=== PATIENT | female | born 1985 | race Caucasian/White ===

== ENCOUNTER 2016-03-23 18:09 | Emergency (ER) | payer SELFPAY ==
[2016-03-23] MEDS ORDERED: IOPAMIDOL 300 (61%) 150 ML VIAL IV ONE (18:10)
[2016-03-23] MEDS ORDERED: ACETAMINOPHEN 325 MG TABLET ONE (18:45)
[2016-03-23 19:00] LABS: ABSOLUTE NEUTROPHIL COUNT 7.2 K/mm3 (1.8-7.7); BASO % 0.4 % (0.2-1.0); EOS # 0.4 (0.0-0.5); EOS % 3.2 % (0.9-2.9); HEMATOCRIT 43.3 % (37.0-47.0); HEMOGLOBIN 14.1 gm/l (12.0-16.0); IMM NEUT% 0.3 % (0-1); LYMPH # 2.6 (1.0-4.8); LYMPH % 23.8 % (15-45); MEAN CELL VOLUME 88.4 fl (81.0-99.0); MEAN CORPUSCULAR HEMOGLOBIN 28.8 pg (27.0-31.0); MEAN CORPUSCULAR HGB CONC 32.6 g/dl (33.0-37.0); MEAN PLATELET VOLUME 9.1 fl (7.4-10.4); MONO # 0.7 (0.0-0.8); MONO % 6.5 % (4-12); NEUT % 65.8 % (43-75); PLATELET COUNT 384 K/mm3 (130-400); RED CELL DISTRIBUTION WIDTH 12.1 % (11.5-14.5)
[2016-03-23 19:09] LABS: ALB/GLOB RATIO 1.4 (>1.0); ALBUMIN 4.1 gm/dL (3.5-5.7); CALCIUM 8.8 mg/dL (8.6-10.3)
[2016-03-23 19:27] LABS: URINE BILIRUBIN NEGATIVE (NEGATIVE); URINE BLOOD TRACE (NEGATIVE); URINE GLUCOSE (UA) NEGATIVE (NEGATIVE); URINE LEUKOCYTE ESTERASE NEGATIVE (NEGATIVE); URINE NITRITE NEGATIVE (NEGATIVE); URINE PROTEIN NEGATIVE (NEGATIVE); URINE UROBILINOGEN NORMAL (0-1 mg/dl)
[2016-03-23 19:50] LABS: URINE COLOR YELLOW
[2016-03-23 19:51] LABS: URINE APPEARANCE CLEAR
[2016-03-23 19:52] LABS: URINE RBC 0-2 /hpf; URINE WBC 0-2 /hpf
[2016-03-23 19:53] LABS: URINE BACTERIA RARE
[2016-03-23 20:11] LABS: HCG,QUALITATIVE URINE NEGATIVE
--- NOTE | 2016-03-23 20:39 | CT ---
Exam Type: ABD/PELVIS W/ CON Date and Time: 03/23/2016 6:32 PM Clinical information: Lower quadrant abdominal pain with cramping and vaginal bleeding. Comparison: None Procedure: Imaging device: [employer] Aquilion [address] scanner 1 mm axial images were obtained through the abdomen and pelvis. Stacked reconstructed 3, 4 and 5 mm images were photographed in the axial coronal and sagittal planes. No oral contrast was utilized for this examination. 125 ml of Isovue-300 was injected intravenously. Exam: with intravenous contrast. FINDINGS: Lung bases:The visualized lung bases appear to be appropriate with no mass, effusion or consolidation visualized. Liver: the liver is homogeneous with no discrete abnormality visualized. No definite findings of biliary dilatation are observed. Spleen: The spleen is homogeneous and does not appear to be enlarged. Gallbladder: Normal without enlargement or evidence of adjacent inflammatory changes. Pancreas: Normal without enlargement or evidence of adjacent inflammatory changes. Adrenal glands: Normal without enlargement or evidence of adjacent inflammatory changes. Abdominal aorta: The aorta is of normal caliber and appears to be without significant atherosclerotic disease. Kidneys: The kidneys appear to be symmetric in size with no perinephric inflammatory changes are identified. No current findings of hydronephrosis are seen. Bowel structures: The visualized bowel is of normal caliber without evidence of dilatation or obstruction. No free fluid or mesenteric inflammatory changes are identified. Appendix: The appendix is well-visualized and appears to be of normal caliber. No periappendiceal inflammatory changes or CT findings of appendicitis are currently observed. The appendix is best visualized in the coronal plane. Bladder: The bladder is of normal contour. No wall thickening or significant distention is observed. Hernia: No abdominal wall or inguinal hernia is visualized on this examination. Adenopathy: No significant enlarged adenopathy is visualized. Osseous structures: No discrete osseous abnormalities are identified. Pelvic structures: No discrete pelvic abnormalities are visualized in this examination. IMPRESSION: 1. A negative CT scan of the abdomen and pelvis.
== END 2016-03-23 18:10 | disposition home or self-care (01) ==
LOC: ED 18:09
DX: N93.9 Abnormal uterine and vaginal bleeding, unspecified (principal); R10.30 Lower abdominal pain, unspecified; R19.7 Diarrhea, unspecified; R11.0 Nausea
CPT/HCPCS: 83690; 81025; 85025; 80053; 83735; 81001; 74177; 99284 ×2; A9270; Q9967